=== PATIENT | female | born 1990 | race Caucasian/White ===

== ENCOUNTER 2018-09-13 13:56 | Emergency (ER) | payer OTHER ==
[~2018-09-13] VITALS: Ht 175.3 cm; Wt 88.9 kg
[2018-09-13] MEDS ORDERED: KETOROLAC TROMETHAMINE 30 MG/ML VIAL IV STA (14:23)
[2018-09-13] MEDS ORDERED: ONDANSETRON HCL INJ 2MG/ML 2ML 2 MG/ML VIAL IV STA (14:23)
[2018-09-13] MEDS ORDERED: SODIUM CHLORIDE 0.9% 1000ML 1,000 ML IV SCH (14:30)
[2018-09-13] MEDS ORDERED: KETOROLAC TROMETHAMINE 30 MG/ML VIAL ONE (14:49)
[2018-09-13] MEDS ORDERED: ONDANSETRON HCL INJ 2MG/ML 2ML 2 MG/ML VIAL ONE (14:50)
[2018-09-13] MEDS ORDERED: SODIUM CHLORIDE 0.9% 1000ML 1,000 ML ONE (14:50)
[2018-09-13] MEDS ORDERED: NAPROSYN500 MG PO (15:18)
[2018-09-13] MEDS ORDERED: BACTRIM DS TAB1 EACH PO (15:18)
[2018-09-13] MEDS ORDERED: ULTRAM50 MG PO (15:18)
--- NOTE | 2018-09-13 15:19 | Diagnostic Imaging Report ---
EXAM: CT of the abdomen and pelvis WITHOUT contrast HISTORY: UTI, pain, left side COMPARISON: None available. TECHNIQUE: The abdomen and pelvis were scanned utilizing a multidetector helical scanner. Coronal and sagittal reformats are available. PROTOCOL: Renal colic IV CONTRAST: None, which limits sensitivity and specificity of evaluation of the soft tissues and vascular structures. ORAL CONTRAST: None, which limits sensitivity and specificity of evaluation of the bowel. RADIATION DOSE: Total DLP: 797.27 mGy*cm Estimated effective dose: (DLP x 0.015 x size factor) Dose modulation, iterative reconstruction, and/or weight based adjustment of the mA/kV was utilized to reduce the radiation dose to as low as reasonably achievable. COMPLICATIONS: None FINDINGS: LOWER THORAX: Unremarkable. HEPATOBILIARY: No definite focal hepatic lesions. No biliary ductal dilatation. The gallbladder is unremarkable. SPLEEN: No splenomegaly. PANCREAS: No focal masses or ductal dilatation. ADRENALS: No adrenal nodule. KIDNEYS/URETERS: No hydronephrosis, stones, or solid mass lesion identified. 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 The left kidney appears slightly larger than the right which may be secondary to the duplicated collecting system; however, there does appear to be extremely subtle fat stranding about the left kidney and proximal left ureters. PELVIC ORGANS/BLADDER: The uterus is retroflexed. The urinary bladder is predominantly decompressed, which limits evaluation. PERITONEUM / RETROPERITONEUM: No free air. Trace nonspecific free fluid in the pelvis, likely physiologic. GI TRACT: On limited evaluation of the gastrointestinal tract, no dilation or wall thickening identified. The appendix appears normal. LYMPH NODES: No pathologically enlarged lymph nodes. VESSELS: Appear unremarkable. BONES: No aggressive osseous lesion or acute fracture. SOFT TISSUES: There is small fat-containing umbilical hernia without associated inflammatory changes. IMPRESSION: 1. No hydronephrosis or calcified urinary tract stone. 2. Subtle findings which could be seen in the setting of a left pyelonephritis. Signed by: Dr. Joey Solis D.O., M.M.M. on 09/13/2018 3:15 PM
[2018-09-13] MEDS ORDERED: CEFTRIAXONE SOD 1 GM VIAL ONE (15:40)
[2018-09-13] MEDS ORDERED: SODIUM CHLORIDE 0.9% 100 ML 100 ML ONE (15:41)
[2018-09-13] MEDS ORDERED: CEFTRIAXONE SOD 1 GM/NS 50 ML 50 ML IV ONE (15:45)
[2018-09-13 16:06] VITALS: BP 132/78
== END 2018-09-13 16:07 | disposition home or self-care (01) ==
LOC: FSED 13:56
DX: R10.9 Unspecified abdominal pain (principal); R11.0 Nausea; N10 Acute pyelonephritis; K42.9 Umbilical hernia without obstruction or gangrene
CPT/HCPCS: 74176; 80053; 81003; 81025; 85025; 87086; 99283; J0696 ×2; J1885; J2405; J7030